=== PATIENT | female | born 1950 | race African-American/Black ===

== ENCOUNTER → 2016-08-24 | Outpatient (CLI) | payer OTHER ==
[~2016-08-24] MED LIST: ASPIR 8181 MG PO; ASPIRIN 325MG325 MG PO; ASPIRIN EC81 MG PO; CALCIUM CARBONATE PO; CATAPRES 0.1MG0.1 MG PO; CHOLECALCIFEROL PO; COLACE 100MG C100 MG PO; COZAAR100 MG PO; FOSAMAX70 MG PO; HYDROCHLOROTHIA25 MG PO; HYDROCORTISONE TP; IBUPROFEN400 MG PO; IMODIUM CAP 2 MG2 MG PO; LEVAQUIN750 MG PO; LIPITOR TAB 1010 MG PO; LOPRESSOR 25 MG25 MG PO; PLETAL 100 MG100 MG PO; PROLIA INJ60 MG/1 ML SC; TYLENOL 500 MG500 MG PO; TYLENOL 650 MG650 MG PO; VERAPAMIL ER240 M1 PO; ZOCOR40 MG PO; [UNRECOGNIZED DRUG - OTHER] PO
[2016-08-24 09:44] LABS: HEMOGLOBIN 12.8 gm/dl (12.3-15.3); RED BLOOD COUNT 4.12 M/UL (4.00-5.10); WHITE BLOOD COUNT 5.7 K/UL (4.5-11.0)
[2016-08-24 10:35] LABS: BUN/CREATININE RATIO 19 (0-10)
== END ==
LOC: LAB 08:38
PROVIDERS: Nurse Practitioner Primary Care
DX: I10 Essential (primary) hypertension (principal); E78.5 Hyperlipidemia, unspecified
CPT/HCPCS: 36415; 80053; 80061; 82043; 82570; 84443; 85025

== ENCOUNTER → 2016-10-03 | Outpatient (CLI) | payer OTHER ==
[2016-10-03 10:16] LABS: BUN/CREATININE RATIO 26 (0-10)
== END ==
LOC: LAB 08:51
PROVIDERS: Nurse Practitioner Primary Care
DX: M81.0 Age-related osteoporosis without current pathological fracture (principal)
CPT/HCPCS: 36415; 80048

== ENCOUNTER → 2020-08-31 | Outpatient (CLI) | payer MEDICARE, OTHER ==
[2020-08-31 11:38] LABS: HEMOGLOBIN 13.3 gm/dl (12.3-15.3); RED BLOOD COUNT 4.35 M/UL (4.00-5.10); WHITE BLOOD COUNT 9.4 K/UL (4.5-11.0)
[2020-08-31 12:04] LABS: BUN/CREATININE RATIO 19 (0-10)
== END ==
LOC: LAB 09:56
PROVIDERS: Nurse Practitioner Primary Care
DX: D63.8 Anemia in other chronic diseases classified elsewhere (principal); I11.9 Hypertensive heart disease without heart failure; E78.5 Hyperlipidemia, unspecified; K59.00 Constipation, unspecified; E83.42 Hypomagnesemia
CPT/HCPCS: 36415; 80053; 80061; 81001; 82728; 83735; 85025

== ENCOUNTER → 2020-11-01 | Outpatient (CLI) | payer MEDICARE, OTHER ==
[2020-11-01 11:00] LABS: BUN/CREATININE RATIO 25 (0-10)
== END ==
LOC: LAB 08:44
PROVIDERS: Nurse Practitioner Primary Care
DX: D63.8 Anemia in other chronic diseases classified elsewhere (principal); R31.9 Hematuria, unspecified; E78.5 Hyperlipidemia, unspecified; K59.00 Constipation, unspecified; E83.42 Hypomagnesemia; E55.9 Vitamin D deficiency, unspecified; D51.8 Other vitamin B12 deficiency anemias
CPT/HCPCS: 36415; 80053; 82607; 82746

== ENCOUNTER → 2021-02-13 | Outpatient (CLI) | payer MEDICARE, OTHER ==
[2021-02-13 10:01] LABS: HEMOGLOBIN 12.4 gm/dl (12.3-15.3); RED BLOOD COUNT 3.96 M/UL (4.00-5.10)
[2021-02-14 07:13] LABS: CREATININE, URINE 68.1 mg/dL (Not Estab.)
== END ==
LOC: LAB 08:41
PROVIDERS: Nurse Practitioner Primary Care
DX: D63.8 Anemia in other chronic diseases classified elsewhere (principal); K59.09 Other constipation; I10 Essential (primary) hypertension; R31.9 Hematuria, unspecified; G80.9 Cerebral palsy, unspecified; K59.00 Constipation, unspecified; E78.5 Hyperlipidemia, unspecified; E83.42 Hypomagnesemia; E55.9 Vitamin D deficiency, unspecified
CPT/HCPCS: 36415; 80053; 80061; 82043; 82570; 83735; 85025

== ENCOUNTER → 2021-06-12 | Outpatient (CLI) | payer MEDICARE, OTHER | LOC: MAMO 09:40 | DX: Z12.31 Encounter for screening mammogram for malignant neoplasm of breast (principal); Z78.0 Asymptomatic menopausal state | CPT/HCPCS: 77067; 77080 ==

== ENCOUNTER → 2021-11-10 | Outpatient (CLI) | payer MEDICARE, OTHER ==
[2021-11-10 10:43] LABS: HEMOGLOBIN 12.2 gm/dl (12.3-15.3); RED BLOOD COUNT 3.95 M/UL (4.00-5.10); WHITE BLOOD COUNT 5.7 K/UL (4.5-11.0)
[2021-11-10 12:12] LABS: BUN/CREATININE RATIO 29 (0-10)
== END ==
LOC: LAB 09:43
PROVIDERS: Nurse Practitioner Primary Care
DX: I10 Essential (primary) hypertension (principal); E78.5 Hyperlipidemia, unspecified; R31.9 Hematuria, unspecified; E83.42 Hypomagnesemia; E55.9 Vitamin D deficiency, unspecified; E83.52 Hypercalcemia; D63.8 Anemia in other chronic diseases classified elsewhere
CPT/HCPCS: 36415; 80053; 80061; 83735; 84443; 85025